=== PATIENT | male | born 1960 | race Caucasian/White ===

== ENCOUNTER 2019-01-02 05:38 | Inpatient (IN) | payer BC ==
[~2019-01-02 05:38] MED LIST: Buffered Lidocaine 1% SYRIN* 1 ML/SYRINGE INTRADERM ONE; Tranexamic Acid 1,000 MG in NS 0.9% 50 ML* (outpatient use) IV SCH
--- OUTSIDE RECORDS SUMMARY | 2019-01-02 05:41 | XMS REPORT | Continuity of Care Document ---
:1960 External Reference #:[id number] Author Name Genesis Denson Problems Active Problems Provider Date Hernia Lima Ford RN MS ESSIE Onset: 07/02/2012 Social History Type Date Description Comments Sex Unknown ETOH Use Occasionally consumes alcohol Tobacco Use Start: Unknown Patient has never smoked Smoking Status Reviewed: 12/13/18 Patient has never smoked Allergies, Adverse Reactions, Alerts Active Allergies Reaction Severity Comments Date Penicillin 07/02/2012 Medications Active Medications SIG Qnty Indications Ordering Provider Date Meloxicam 1 by mouth Unknown 15mg Tablets every day Acetaminophen ER take one Unknown 650mg tablet, orally, Tablets ER every 8-hours, as needed, for pain.... Immunizations CPT Code Status Date Vaccine Lot # [id number] Given 12/13/2018 Influenza Vac, Quadrivalent, Split, 0.5mL Dosage, [id number] Im Use [id number] Given 11/06/2002 Immunization Td 7 Yrs Or Older Vital Signs Date Vital Result Comment 12/13/2018 1:11pm Weight 283.00 lb Heart Rate 85 /min BP Systolic 140 mmHg BP Diastolic 80 mmHg Height 73 inches 6'1" BMI (Body Mass Index) 37.3 kg/m2 01/01/2014 11:19am Weight 262.38 lb Heart Rate 79 /min BP Systolic 115 mmHg BP Diastolic 72 mmHg Height 73 inches 6'1" BMI (Body Mass Index) 34.6 kg/m2 Results Description No Information Available Procedures Date Code Description Status 12/13/2018 86976 Electrocardiogram Complete Completed Medical Devices Description No Information Available Encounters Description No Information Available Assessments Date Code Description Provider 12/13/2018 Z01.818 Encounter for other preprocedural Lima Ford RN MS [employer]PLIANCE [employer]S COUNTER CLERK examination 12/13/2018 M25.551 Pain in RIGHT hip Lima Ford RN MS APPLIANCE [employer]S COUNTER CLERK 12/13/2018 I10 Essential (primary) hypertension Lima Ford, MAYURI MS APPLIANCE PARTS COUNTER CLERK 12/13/2018 E66.9 Obesity, unspecified Lima Ford, MAYURI MS APPLIANCE PARTS COUNTER CLERK 12/13/2018 Z11.59 Encounter for screening for other Lima Ford RN MS APPLIANCE PARTS COUNTER CLERK viral diseases 12/13/2018 Z12.5 Encounter for screening for malignant Lima Ford RN MS APPLIANCE PARTS COUNTER CLERK neoplasm of prostate 12/13/2018 Z23 Encounter for immunization Lima Ford RN MS APPLIANCE PARTS COUNTER CLERK 12/13/2018 Z68.37 Body mass index (BMI) 37.0-37.9, Lima Ford, MAYURI MS APPLIANCE PARTS COUNTER CLERK adult Plan of Treatment Future Appointment(s):06/26/2019 8:00 am - Lima Ford RN MS APPLIANCE PARTS COUNTER CLERK at [facility]2112/13/2018 - Lima Ford RN MS FNPZ01.818 Encounter for other preprocedural examinationComments:pt not seen here in many years and has not had a colonoscopy ,( mom had colon cancer ) he is due for a tetnus shotWe gave him a flu shot today.M25.551 Pain in RIGHT hipNew Labs:CBC with Auto Diff-fcmg, Ordered: 12/13/18I10 Essential (primary) hypertensionNew Labs:Comprehensive Met Panel-FCMG, Ordered: 12/13/18E66.9 Obesity, ivhhbfpzpbcQ48.59 Encounter for screening for other viral diseasesNew Labs:Hepatitis C Virus Antibody, Ordered: 12/13/18Z12.5 Encounter for screening for malignant neoplasm of prostateNew Labs :PSA, Ordered: 12/13/18Z23 Encounter for youskhmmrjssO38.37 Body mass index (BMI ) 37.0-37.9, adult Functional Status Description No Information Available Mental Status Description No Information Available Referrals Description No Information Available
--- OUTSIDE RECORDS SUMMARY | 2019-01-02 05:41 | XMS REPORT | Continuity of Care Document ---
:1960 External Reference #:[id number] Author Name Jacquie Crowley M.D. (transmitted by agent of provider Deon Garcia) Address [address] [facility] [place] [address] Care Team Providers Name Role Phone Lima Ford, DICE TABLE PERSON - Family Care Team Information Manager Apple Problems Active Problems Provider Date Localized, primary osteoarthritis of the pelvic Jacquie Crowley M.D. Onset: 06/2018 region and thigh Social History Type Date Description Comments Sex Unknown ETOH Use Occasionally consumes alcohol Tobacco Use Start: Unknown Patient has never smoked Smoking Status Reviewed: 11/29/18 Patient has never smoked Exercise Type/Frequency Exercises sporadically Allergies, Adverse Reactions, Alerts Active Allergies Reaction Severity Comments Date Penicillin 03/22/2018 Medications Active Medications SIG Qnty Indications Ordering Provider Date Meloxicam take 1 tab by 30tabs M25.551 Jacquie Crowley M.D. 03/22/2018 15mg Tablets mouth with food once a day Immunizations Description No Information Available Vital Signs Date Vital Result Comment 11/29/2018 3:32pm Height 72 inches 6'0" Weight 226.00 lb Heart Rate 85 /min Body Temperature 97.7 F Pain Level 3 BMI (Body Mass Index) 30.6 kg/m2 03/22/2018 2:56pm Height 72 inches 6'0" Weight 266.00 lb Heart Rate 80 /min BP Systolic 130 mmHg BP Diastolic 80 mmHg BMI (Body Mass Index) 36.1 kg/m2 Results Description No Information Available Procedures Description No Information Available Medical Devices Description No Information Available Encounters Description No Information Available Assessments Date Code Description Provider 11/29/2018 M25.551 Pain in right hip Jacquie Crowley M.D. 11/29/2018 M16.11 Unilateral primary osteoarthritis, right hip Jacquie Crowley M.D. Plan of Treatment Future Appointment(s):01/02/2019 9:30 am - Jacquie Crow[facility] M.D. at [facility]..12/20/2018 10:00 am - Jacquie Crowley M.D. at [facility].11/29/2018 - Jacquie Crowley M.D.M25.551 Pain in right hipNew Xrays:Hip Right 2 Views And Pelvis 73470 - 78559, Ordered: 11/29/18Follow up: Follow up: 7-10 days before hcrbwpgR89.11 Unilateral primary osteoarthritis, right hip Functional Status Description No Information Available Mental Status Description No Information Available Referrals Description No Information Available
--- OUTSIDE RECORDS SUMMARY | 2019-01-02 05:41 | XMS REPORT | Continuity of Care Document ---
:1960 External Reference #:[id number] Author Name Lima Ford, MAYURI MS [employer]ITCHER [employer] Address [address] [place] [address] Problems Active Problems Provider Date Hernia Lima Ford RN MS [employer]STITCHER [employer] Onset: 07/02/2012 Social History Type Date Description [...] CPT Code Status Date Vaccine Lot # [id number] Given 12/13/2018 Influenza Vac, Quadrivalent, Split, 0.5mL Dosage, [id number] Im Use [id number] Given 11/06/2002 Immunization Td 7 Yrs Or [...] BMI (Body Mass Index) 34.6 kg/m2 Results Test Date Facility Test Result H/L Range Note Laboratory test 12/20/2018 [facility] PSA Screening 0.757 ng/mL Normal 0-4.000 1 finding Hepatitis C 12/20/2018 [facility] HCV Index 0.02 s/c Virus Antibody Hepatitis C Antibody Negative Negative 1 Serum levels of PSA measured using the [employer] [place] DXI Hybritech immunoassay should not be interpreted as absolute evidence of the presence or absence of disease. The PSA value should be used in conjunction with other pertinent clinical diagnostic procedures. The values obtained with different assay methods or kits cannot be used interchangeably. Procedures Date Code Description Status 12/13/2018 03190 Electrocardiogram Complete Completed Medical Devices Description No Information Available Encounters Type Date Location Provider Dx Diagnosis Office Visit 12/13/2018 Lima Cevallos, Z01.818 [facility] M25.551 Pain in RIGHT hip I10 Essential (primary) hypertension E66.9 Obesity, unspecified Z11.59 Encounter for screening for other viral diseases Z12.5 Encounter for screening for malignant neoplasm of prostate Z23 Encounter for immunization R60.0 Localized edema Z68.37 Body mass index (BMI) 37.0-37.9, adult Assessments Date Code Description Provider 12/13/2018 Z01.818 Encounter for other preprocedural Lima Ford RN MS [employer] examination 12/13/2018 M25.551 Pain in RIGHT hip Lima Ford RN MS [employer] 12/13/2018 I10 Essential (primary) hypertension Lima Ford RN MS [employer]ER [employer] 12/13/2018 E66.9 Obesity, unspecified Lima Ford, MAYURI MS [employer]ER [employer] 12/13/2018 Z11.59 Encounter for screening for other Lima Ford RN MS [employer] viral diseases 12/13/2018 Z12.5 Encounter for screening for malignant Lima Ford RN MS [employer] neoplasm of prostate 12/13/2018 Z23 Encounter for immunization Lima Ford RN MS [employer] 12/13/2018 R60.0 Localized edema Lima Ford RN MS [employer] 12/13/2018 Z68.37 Body mass index (BMI) 37.0-37.9, Lima Ford RN [facility] adult Plan of Treatment Future Appointment(s):06/26/2019 8:00 am - Lima Ford RN MS [employer]STITCHER ZIGZAG at [facility]1912/13/2018 - [facility] Encounter for other preprocedural examinationComments:pt not seen here in many years and has not had a colonoscopy ,( mom had colon cancer ) he is due for a tetnus shotWe gave him a flu shot today.Miscellaneous:YOU MUST SCHEDULE FOR COLOGUARD OR COLONOSCOPY SOON YOU ARE ABLE, YOUR MOM HAVING COLON CANCERPUTS YOU AT HIGHER RISK!!!M25.551 Pain in RIGHT hipI10 Essential (primary) hypertensionComments:APPEARS TO BE CHRONIC AND STABLE AT THIS TIME. ON NO MEDSMiscellaneous:BP SLIGHTLY HIGH TODAY . 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 WE REVIEWED THAT ATTHIS TIME THERE IS NO OTHER SCREENING TEST AVAIL FOR THIS DX , SO WILL CONTINUE TO USE A PSA TESTZ23 Encounter for khebsdjklidqF06.0 Localized edemaComments:His RT LE is swollen , not tender or numb. pt states has been " exactly like this for years since aDVT" . We have not seen this pt is many years, and so he may need to have an U/S of the LE prior tosurgery, Unless Surgery feels not necessary.Z68.37 Body mass index (BMI ) 37.0-37.9, adult Functional Status Description No Information Available Mental Status Description No Information Available Referrals Description No Information Available
--- OUTSIDE RECORDS SUMMARY | 2019-01-02 05:41 | XMS REPORT | Continuity of Care Document ---
:1960 External Reference #:[id number] Author Name Jacquie Crowley M.D. (transmitted by agent of provider Pratibha Miguel) Address [address] [place] [address] [place] [address] Care Team Providers Name Role Phone Lima Ford, INSPECTOR DIALS - Family Care Team Information Emergency Department Problems Active Problems Provider Date Localized, primary osteoarthritis of the pelvic Jacquie Crowley M.D. Onset: 06/2018 region and thigh Social History Type Date Description Comments Sex Unknown ETOH Use Occasionally consumes alcohol Tobacco Use Start: Unknown Patient has never smoked Smoking Status Reviewed: 12/20/18 Patient has never smoked Exercise Type/Frequency Exercises sporadically Allergies, Adverse Reactions, Alerts Active Allergies Reaction Severity Comments Date Penicillin 03/22/2018 Medications Active Medications SIG Qnty Indications Ordering Provider Date Meloxicam take 1 tab by 6tabs M25.551 Jacquie Crowley M.D. 03/22/2018 15mg Tablets mouth with food once a day Immunizations Description No Information Available Vital Signs Date Vital Result Comment 12/20/2018 10:33am Height 72 inches 6'0" Weight 282.00 lb Heart Rate 80 /min BP Systolic 144 mmHg BP Diastolic 94 mmHg Respiratory Rate 20 /min Body Temperature 97.8 F Pain Level 0 BMI (Body Mass Index) 38.2 kg/m2 11/29/2018 3:32pm Height 72 inches 6'0" Weight 226.00 lb Heart Rate 85 /min Body Temperature 97.7 F Pain Level 3 BMI (Body Mass Index) 30.6 kg/m2 Results Description No Information Available Procedures Description No Information Available Medical Devices Description No Information Available Encounters Type Date Location Provider Dx Diagnosis Office Visit 11/29/2018 [facility] Jacquie Crowley M25.551 Pain in right hip 3:30p at [facility] M16.11 Unilateral primary osteoarthritis, right hip Assessments Date Code Description Provider 12/20/2018 M25.551 Pain in right hip Jacquie Crowley M.D. 12/20/2018 M16.11 Unilateral primary osteoarthritis, right hip Jacquie Crowley M.D. 11/29/2018 M25.551 Pain in right hip Jacquie Crowley M.D. 11/29/2018 M16.11 Unilateral primary osteoarthritis, right hip Jacquie Crowley M.D. Plan of Treatment Future Appointment(s):01/13/2019 3:30 pm - Jacquie Crowley M.D. at [facility] at Aeineg0701/02/2019 9:30 am - Joe Tohrne PA-C at [facility] at Fnmvzk4301/02/2019 9:30 am - DAVID Elias at [facility] at Pwarhf6101/02/2019 9:30 am - Jacquie Crowley M.D. at [facility] at Tmyupg3112/20/2018 - Jacquie Crowley M.D.M25.551 Pain in right hipM16.11 Unilateral primary osteoarthritis, right hipFollow up:Follow up: To the OR Functional Status Description No Information Available Mental Status Description No Information Available Referrals Description No Information Available
--- OUTSIDE RECORDS SUMMARY | 2019-01-02 05:41 | XMS REPORT | Continuity of Care Document ---
:1960 External Reference #:[id number] Author Name Jacquie Crowley M.D. (transmitted by agent of provider Kavita Coulter) Address [address] [place] [address] [place] [address] Care Team Providers Name Role Phone Lima Ford, RENTAL SALES AGENT - Family Care Team Information Hospital Receiving Clerk [phone] Problems Active Problems Provider Date Localized, primary [...] BMI (Body Mass Index) 30.6 kg/m2 Results Test Date Facility Test Result H/L Range Note Urinalysis Profile 12/20/2018 [facility] Urine Color Yellow [address] [place] [address] [phone] Urine Appearance Clear Urine Specific [place] 1.015 Normal 1.010-1.030 Urine pH 5.0 Normal 5-9 Urine Urobilinogen Negative Negative Urine Ketones Negative Negative Urine Protein Negative Negative Urine Leukocytes Negative Negative Urine Blood 1+ Abnormal Negative Urine Nitrite Negative Negative Urine Bilirubin Negative Negative Urine Glucose Negative Negative Urine White Blood Cell Trace(0-5/hpf) Absent Urine Red Blood Cell Trace(0-2/hpf) Absent Urine Bacteria Absent Absent Inr/Protime 12/20/2018 [facility] Inr 0.92 Normal 0.82-1.[address] [place] [address] [phone] Laboratory test 12/20/2018 [facility] Partial 30.8 Normal 26.0 -38.[address] [address] Time PTT [phone] CBC Auto Diff 12/20/2018 [facility] White Blood 5.9 10^3/uL Normal 3.5-10.[address] [place] [address] [phone] Red Blood Count 4.57 10^6/uL Normal 4.18-5.48 Hemoglobin 14.7 g/dL Normal 14.0-18.0 Hematocrit 42 % Normal 42-52 Mean Corpuscular Volume 93 fL Normal 80-94 Mean Corpuscular Hemoglobin 32 pg High 27-31 Mean Corpuscular HGB Conc 35 g/dL Normal 31-36 Red Cell Distribution Width 14 % Normal 10-15 Platelet Count 194 10^3/uL Normal 150-450 Mean Platelet Volume 7.8 fL Normal 7.4-10.4 Abs Neutrophils 3.5 10^3/uL Normal 1.5-7.7 Abs Lymphocytes 1.7 10^3/uL Normal 1.0-4.8 Abs Monocytes 0.5 10^3/uL Normal 0-0.8 Abs Eosinophils 0.1 10^3/uL Normal 0-0.6 Abs Basophils 0.0 10^3/uL Normal 0-0.2 Abs Nucleated RBC 0.0 10^3/uL Granulocyte % 59.9 % Lymphocyte % 29.0 % Monocyte % 8.2 % Eosinophil % 2.2 % Basophil % 0.7 % Nucleated Red Blood Cells % 0.1 Comp Metabolic 12/20/2018 [facility] Sodium 138 mmol/L Normal 135-145 Panel [address] [place] [address] [phone] Potassium 4.0 mmol/L Normal 3.5-5.0 Chloride 104 mmol/L Normal 101-111 Co2 Carbon Dioxide 27 mmol/L Normal 22-32 Anion Gap 7 mmol/L Normal 2-11 Glucose 86 mg/dL Normal 70-100 Blood Urea Nitrogen 17 mg/dL Normal 6-24 Creatinine 0.65 mg/dL Low 0.67-1.17 BUN/Creatinine Ratio 26.2 High 8-20 Calcium 9.2 mg/dL Normal 8.6-10.3 Total Protein 6.7 g/dL Normal 6.4-8.9 Albumin 4.4 g/dL Normal 3.2-5.2 Globulin 2.3 g/dL Normal 2-4 Albumin/Globulin Ratio 1.9 Normal 1-3 Total Bilirubin 0.40 mg/dL Normal 0.2-1.0 Alkaline Phosphatase 78 U/L Normal 34-104 Alt 34 U/L Normal 7-52 Ast 22 U/L Normal 13-39 Egfr Non- 125.7 >60 Egfr 152.1 >60 2 Type & Screen 12/20/2018 [facility] Patient Blood Type A Positive [address] [place] [address] [phone] Antibody Screen NEGATIVE Urine Culture And 12/20/2018 [facility] Urine Culture SEE RESULT 3 Sensitivities [address] [facility] [address] [place] [address] [phone] 1 Standard intensity warfarin therapeutic range: 2.0-3.0 High intensity warfarin therapeutic range: 2.5-3.5 2 Because ethnic data is not always readily available, this report includes an eGFR for both -Americans and non- Americans. The National Kidney Disease Education Program (NKDEP) does not endorse the use of the MDRD equation for patients that are not between the ages of 18 and 70, are , have extremes of body size, muscle mass, or nutritional status, or are non- or non-. According to the National Kidney Foundation, irrespective of diagnosis, the stage of the disease is based on the level of kidney function: Stage Description GFR(mL/min/1.73 m(2)) 1 Kidney damage with normal or decreased GFR 90 2 Kidney damage with mild decrease in GFR 60-89 3 Moderate decrease in GFR 30-59 4 Severe decrease in GFR 15-29 5 Kidney failure <15 (or dialysis) 3 SEE RESULT BELOW Name: DARREN FOOTE : [address]: Jacquie Crowley MD Acct: [id number] Unit: [id number] AGE: 58 Location: [facility] Re12/20/18 SEX: M Status: REG REF SPEC: [id number] MAEGAN: 12/20/[address] [facility] DR: Jacquie Crowley MD REQ: [id number] RECD: 12/20/18 STATUS: CYDNEY ESTRELLA DR: Lima Ford RENTAL SALES AGENT _ SOURCE: URINE SPDESC: ORDERED: Urine Culture QUERIES: Urine Source: Clean Catch Procedure Result Reported Site Urine Culture Final 12/21/18- 1233 ML No Growth (<1,000 CFU/mL) * ML - Main Lab . END OF REPORT DEPARTMENT OF PATHOLOGY, [address] [place] [address] Darren Herron M.D. Director [facility] # [id number] Procedures Description No Information Available Medical Devices Description No Information Available Encounters Type Date Location Provider Dx Diagnosis Office Visit 11/29/2018 [facility] Jacquie Crowley, M25.551 Pain in right hip 3:30p at [facility] M16.11 Unilateral primary osteoarthritis, right hip Assessments Date Code Description Provider 12/20/2018 M25.551 Pain in right hip Jacquie Crowley M.D. 12/20/2018 M16.11 Unilateral primary osteoarthritis, right hip Jacquie Crowley M.D. 11/29/2018 M25.551 Pain in right hip Jacquie Crowley M.D. 11/29/2018 M16.11 Unilateral primary osteoarthritis, right hip Jacquie Crowley M.D. Plan of Treatment Future Appointment(s):01/13/2019 3:30 pm - Jacquie Crowley M.D. at [facility]01/02/2019 9:30 am - Joe Thorne PA-C at [facility]01/02/2019 9:30 am - DAVID Elias at [facility]01/02/2019 9:30 am - Jacquie Crowley M.D. at [facility]12/20/2018 - Jacquie Crowley M.D.M25.551 Pain in right hipM16.11 Unilateral primary osteoarthritis, right hipFollow up:Follow up: To the OR Functional Status Description No Information Available Mental Status Description No Information Available Referrals Description No Information Available
[2019-01-02] MEDS ORDERED: DiMENhydriNATE IV* 50 MG/ML VIAL IV PUSH PRN (05:58)
[2019-01-02] MEDS ORDERED: Scopolamine 1.5 mg* PATCH TRANSDERM PRN (05:58)
[2019-01-02] MEDS ORDERED: Naloxone* 0.4 MG/ML 1 ML VIAL IV PRN (05:58)
[2019-01-02] MEDS ORDERED: fentaNYL* 50 MCG/ML 2 ML VIAL (100 MCG VIAL) IV PRN (05:58)
[2019-01-02] MEDS ORDERED: PROCHLORPERAZINE INJ 5 MG/ML 2 ML VIAL IV PRN (05:58)
[2019-01-02] MEDS ORDERED: HYDROmorphone INJ1* 1 MG/ML SYRINGE IV PRN (05:58)
[2019-01-02] MEDS ORDERED: Gabapentin CAP(*) 300 MG PO ONE (06:00)
[2019-01-02] MEDS ORDERED: Acetaminophen TAB* 325 MG PO ONE (06:00)
[2019-01-02] MEDS ORDERED: Dexamethasone TAB* 4 MG PO ONE (06:00)
[2019-01-02] MEDS ORDERED: Famotidine IV* 10 MG/ML 2 ML (20 mg) IV ONE (06:00)
[2019-01-02] MEDS ORDERED: Lactated Ringers 1000 ML Bag* 1,000 ML IV SCH (06:00)
[2019-01-02] MEDS ORDERED: celeCOXIB CAP* 200 MG PO ONE (06:00)
[2019-01-02] MEDS ORDERED: Ondansetron ODT TAB* 4 MG PO ONE (06:00)
[2019-01-02] MEDS ORDERED: Clindamycin 900 MG/D5W BAG(*) 900 MG/50 ML BAG IVPB ONE (06:22)
[2019-01-02] MEDS ORDERED: Dexamethasone TAB* 4 MG ONE (06:22)
[2019-01-02] MEDS ORDERED: Ondansetron ODT TAB* 4 MG ONE (06:22)
[2019-01-02] MEDS ORDERED: Acetaminophen TAB* 325 MG ONE (06:22)
[2019-01-02] MEDS ORDERED: celeCOXIB CAP* 200 MG ONE (06:22)
[2019-01-02] MEDS ORDERED: Famotidine IV* 10 MG/ML 2 ML (20 mg) ONE (06:22)
[2019-01-02] MEDS ORDERED: Gabapentin CAP(*) 300 MG ONE (06:41)
[2019-01-02] MEDS ORDERED: ROPIVACAINE 5 MG/ML 30 ML BTL (0.5%) ONE ×2 (07:18→08:50)
[2019-01-02] MEDS ORDERED: fentaNYL* 50 MCG/ML 5 ML VIAL (250 MCG VIAL) ONE (07:22)
[2019-01-02] MEDS ORDERED: Rocuronium* 10 MG/ML VIAL ONE ×2 (07:22→08:14)
[2019-01-02] MEDS ORDERED: KETAMINE HCL* 50 MG/ML 10 ML VIAL ONE (07:23)
[2019-01-02] MEDS ORDERED: Midazolam* 1 MG/ML 5 ML VIAL (5 MG) ONE (07:23)
[2019-01-02] MEDS ORDERED: HYDROmorphone INJ1* 1 MG/ML SYRINGE ONE ×2 (09:01→09:26)
[2019-01-02] MEDS ORDERED: Glycopyrrolate IV* 0.2 MG/ML 1 ML VIAL ONE (10:01)
[2019-01-02] MEDS ORDERED: Propofol* 10 MG/ML 20 ML BTL ONE (10:01)
[2019-01-02] MEDS ORDERED: Lidocaine 2% PF * 5 ML VIAL ONE (10:01)
[2019-01-02] MEDS ORDERED: Phenylephrine 40 MCG/ML SYRINGE ONE (10:01)
[2019-01-02] MEDS ORDERED: Neostigmine Methylsulfate* 1 MG/ML 10 ML VIAL (1 mg/ml) ONE (10:01)
[2019-01-02] MEDS ORDERED: Cyclobenzaprine TAB* 10 MG PO PRN (10:16)
[2019-01-02] MEDS ORDERED: Acetaminophen TAB* 325 MG PO PRN (10:16)
[2019-01-02] MEDS ORDERED: oxyCODONE/Acetamin 5/325 MG* TAB PO PRN (10:16)
[2019-01-02] MEDS ORDERED: diPHENhydraMINE IV* 50 MG/ML 1 ml VIAL (BENADRYL) IV PRN (10:16)
[2019-01-02] MEDS ORDERED: oxyCODONE TAB* 5 MG TAB PO PRN (10:16)
[2019-01-02] MEDS ORDERED: Morphine INJ* 2 MG/ML 1 ML SYRINGE (TWO MG - NEW SYRINGE VERSION) IV PRN (10:16)
[2019-01-02] MEDS ORDERED: diPHENhydraMINE PO* 25 MG PO PRN (10:16)
[2019-01-02] MEDS ORDERED: Ondansetron ODT TAB* 4 MG PO PRN (10:16)
[2019-01-02] MEDS ORDERED: Ondansetron INJ* 2 MG/ML VIAL IV PRN (10:16)
[2019-01-02] MEDS ORDERED: Magnesium Hydroxide LIQ* 30 ML UDC PO PRN (10:16)
--- NOTE | 2019-01-02 12:30 | PN ---
Progress Note - Progress Note Date of Service: 01/02/19 Note: resting comfortably in recovery, pain well controlled; able to dorsi flex/ plantar flex, 2+ DP pulse, intact sensation
[2019-01-02] MEDS: Lactated Ringers 1000 ML Bag* 1,000 ML IV SCH (13:45)
--- NOTE | 2019-01-02 15:33 | OP ---
Operative Report - Blank - Operative Report Date of Operation: 01/02/19 Note: SABINE FOOTE 1960 Date Of Surgery: 01/02/19 Jacquie Crowley MD Grants Officer: Soham HERNANDEZ did help throughout the procedure with preparation of the hip, wound retraction, manipulation of the hip, and wound closure. Anesthesiologist: Brady Mcnair Anesthesia Type: Spinal Preoperative Diagnosis: Right severe degenerative osteoarthritis of the hip Postoperative Diagnosis: As above Procedure Performed: Right Total Hip Arthroplasty with modifier for added operative time due to morbid obesity Complications: None Specimen: Femoral head and acetabular reamings sent to pathology. Hardware used: This is uncemented Cindy total hip arthroplasty hardware for the femur a size 6 accolade II with 127 neck angle femoral component, for the acetabulum a size 56F trident II tritanium cluster hole shell, 2 screws both 15 mm length, for the insert a size 40F trident X3 polyethylene insert, and for the femoral head a size 40 +0 ceramic biolox V40 femoral head. Brief history/Indication: SABINE FOOTE was known in clinic and had a history of severe right hip pain. He failed conservative treatment with anti- inflammatories, pain pills, intra-articular injections and physical therapy. He elected to undergo right total hip arthroplasty due to continued pain and decreased quality of life. Radiographs showed severe end stage osteoarthritis of the hip with bone on bone contact. Informed consent was obtained from the patient. He understood the risks of surgery included but were not limited to: bleeding, infection, damage to nearby structures, intraoperative fracture, nerve palsy, failure of the hardware, early loosening, stiffness or loss of motion, dislocation, leg length discrepancy, anesthesia complications, stroke, heart attack, blood clot and . He wished to proceed. Intra-Operative findings: Intraoperatively the patient was noted to have severe loss of cartilage of the acetabulum and femoral head. The patient was morbidly obese and his body habitus added 60 minutes to operative time. Positioning, exposure, implant placement and closure were all made more complex and took additional operative time. Description of the Procedure: SABINE FOOTE was identified in the preanesthesia unit. His right hip was marked as the correct operative side. Informed consent was signed and placed in the chart. The patient was taken to the operating room and placed under anesthesia without complication. A burton catheter was placed. The patient was placed on the peg board with all bony prominences well padded. The right lower extremity was prepped and draped in the usual sterile fashion. Preoperative time -out was made to correctly identify the patient, side and site. Appropriate intraoperative antibiotics were given within one hour of incision. A standard posterior incision was made and carried sharply down to the lateral fascia. A new 10 blade was used to make an incision in the fascia in line with the skin incision. A charnley retractor was placed. The piriformis and conjoined tendons were identified and elevated off the posterolateral femur using electrocautery. These were tagged with number 5 Ethibond. Next electrocautery was used to make a posterolateral capsular flap and this was tagged with number 5 Ethibonds. The hip was carefully dislocated. Lesser trochanter to the center of the femoral head was measured at 62 mm. The oscillating saw was used to make the femoral neck cut. The femoral head was carefully removed. The femur was retracted anteriorly and the acetabular retractors were placed. Long-handled knife was used to sharply remove any remaining labrum from the acetabular rim. The acetabulum was sequentially reamed up to a size 56. A bleeding subchondral bone bed was obtained. A trial liner was placed and had excellent fit and stability. A 56F cup with 2 screws was placed and had excellent stability with appropriate anteversion and abduction angle. A size 40 F polyethylene liner was impacted into the acetabular shell. The liner was checked for stability and was stable. Next attention was turned to preparation of the femoral canal. A canal finder was used to enter the proximal femur. The femoral canal was sequentially broached up to a size 6 femoral broach trial. A trial neck and 40 +0 trial femoral head was chosen. Lesser trochanter to center of the femoral head measurement was satisfactory. The hip was reduced and taken through a range of motion. The hip was stable in all positions with good soft tissue tension and appropriate leg lengths. The hip was dislocated and all trials were removed. The final implant chosen was a accolade size 6 with 127 neck angle. This stem was impacted into the femoral canal without difficulty. The stem was stable with appropriate anteversion. The femoral head chosen was a 40 + 0 ceramic head. The head was impacted onto the femoral neck without difficulty. The final lesser trochanter to center of the femoral head measurement was satisfactory. The hip was reduced and taken through a range of motion. The hip was stable in all positions with good soft tissue tension and appropriate leg lengths. The hip was copiously irrigated with sterile saline. The previously tagged capsule and tendons were repaired to the posterolateral femur through two trochanteric drill holes. The lateral fascia layer was closed using number 1 vicryls. The rest of the incision was closed in a layered fashion using 0 and 2-0 vicryls. The skin was closed using 3-0 monocryl suture and Dermabond. Sterile adaptic, 4x4s and paper tape was used to cover the incision. The patients anesthesia was reversed without difficulty. He was taken to the PACU in stable condition. Intended weight-bearing will be as tolerated with posterior hip precautions.
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
[2019-01-02] MEDS ORDERED: Clindamycin 600 MG IVPREMIX(* 600 MG/50 ML SDV IV SCH (17:30)
[2019-01-02] MEDS: Docusate CAP* 100 MG PO SCH (21:02)
[2019-01-02] MEDS: Magnesium Hydroxide LIQ* 30 ML UDC PO SCH (21:02)
[2019-01-02] MEDS: oxyCODONE/Acetamin 5/325 MG* TAB PO PRN (21:04)
[2019-01-03] MEDS: Lactated Ringers 1000 ML Bag* 1,000 ML IV SCH (00:18)
[2019-01-03] MEDS: oxyCODONE/Acetamin 5/325 MG* TAB PO PRN ×4 (01:23→22:08)
[2019-01-03] MEDS: Clindamycin 600 MG/D5W BAG(*) 600 MG/50 ML BAG IV SCH ×2 (01:30→08:25)
[2019-01-03 06:14] LABS: Hematocrit 33 % (42-52); Hemoglobin 11.4 g/dL (14.0-18.0); Mean Platelet Volume 7.6 fL (7.4-10.4); Platelet Count 147 10^3/uL (150-450)
[2019-01-03 06:31] LABS: BUN/Creatinine Ratio 24.3 (8-20); Calcium 8.2 mg/dL (8.6-10.3); EGFR African American 139.7 (>60); EGFR Non-African American 115.4 (>60)
[2019-01-03] MEDS: Docusate CAP* 100 MG PO SCH ×2 (08:55→22:07)
[2019-01-03] MEDS: Vitamin THERAPEUTIC TAB PO SCH (08:55)
[2019-01-03] MEDS: Apixaban* 2.5 MG TAB PO SCH ×2 (08:56→22:07)
[2019-01-03] MEDS: Magnesium Hydroxide LIQ* 30 ML UDC PO SCH ×2 (08:56→22:07)
--- NOTE | 2019-01-03 10:19 | PN ---
Progress Note - Progress Note Date of Service: 01/03/19 SOAP: Subjective: [Pt was seen in chair this morning. States that he is doing well. Pain is well controlled at this point. He denies any SOB, chest pain. numbness or tingling. He has not had a bowel movement at this point. Lozano was just removed. ] Objective: [General: pt is alert and oriented x3. NAD MSK, RLE: dressing is c/d/i. Calves are soft and non tender. He is NVI. ] Vital Signs Temp 98.5 F 01/03/19 07:31 Pulse 81 01/03/19 07:31 Resp 18 01/03/19 10:00 BP 101/58 01/03/19 07:31 Pulse Ox 94 01/03/19 10:00 Intake & Output 01/02/19 01/03/19 01/03/19 18:59 06:59 18:59 Intake Total 3040 2033 Output Total 500 1300 Balance 2540 733 Intake: IV Fluids 2800 1033 ABX - CLINDAMYCIN 53 LR 2800 980 Oral 240 1000 Output: Lozano 200 1300 Emesis 150 Estimated Blood Loss 150 Assessment: [POD RTHA ] Plan: [Discussion of discharge occurred today. The pt would like to go home should afternoon PT go well. Continue with Eliquis x 30 days Continue with Percocet 5/325 for pain relief. DC tomorrow morning ]
--- NOTE | 2019-01-03 19:25 | PN ---
Subjective Date of Service: 01/03/19 Interval History: Pt doing well today. He states that his pain is very well controlled, rates it at 1-2/10 currently. He has just returned from walking halls. He has no complaints. Objective Active Medications: Acetaminophen (Tylenol Tab*) 650 mg PO Q8HR PRN Apixaban (Eliquis*) 2.5 mg PO BID STEPHEN Bisacodyl (Dulcolax Supp*) 10 mg NJ DAILY PRN Cyclobenzaprine HCl (Flexeril Tab*) 10 mg PO Q6H PRN Diphenhydramine HCl (Benadryl Iv*) 25 mg IV Q6H PRN Diphenhydramine HCl (Benadryl Po*) 25 mg PO Q6H PRN Docusate Sodium (Colace Cap*) 100 mg PO BID STEPHEN Lactated Ringer's (Lactated Ringers 1000 Ml Bag*) 1,000 mls @ 100 mls/hr IV PER RATE STEPHNE Lactulose (Lactulose*) 30 ml PO BID PRN Magnesium Hydroxide (Milk Of Magnesia Liq*) 30 ml PO BID STEPHEN Magnesium Hydroxide (Milk Of Magnesia Liq*) 30 ml PO Q6H PRN Morphine Sulfate (Morphine Inj (Syringe))*) 2 mg IV Q4H PRN Multivitamins (Theragran Tab*) 1 tab PO DAILY STEPHEN Ondansetron HCl (Zofran Inj*) 4 mg IV Q6H PRN Ondansetron HCl (Zofran Odt Tab*) 4 mg PO Q6H PRN Oxycodone HCl (Roxycodone Tab*) 10 mg PO Q4H PRN Oxycodone/Acetaminophen (Percocet 5/325 Tab*) 1 tab PO Q4H PRN Oxycodone/Acetaminophen (Percocet 5/325 Tab*) 2 tab PO Q4H PRN Vital Signs: Temp Pulse Resp BP Pulse Ox 100 F 82 16 105/56 98 01/03/19 16:47 01/03/19 15:48 01/03/19 16:00 01/03/19 15:48 01/03/19 16:00 Oxygen Devices in Use Now: None Appearance: Pt sitting in chair with LE elevated. In no acute distress. Eyes: No Scleral Icterus, PERRLA Ears/Nose/Mouth/Throat: NL Teeth, Lips, Gums, Clear Oropharnyx, Mucous Membranes Moist Neck: NL Appearance and Movements; NL JVP, Trachea Midline Respiratory: Symmetrical Chest Expansion and Respiratory Effort, Clear to Auscultation Cardiovascular: NL Sounds; No Murmurs; No JVD, RRR, No Edema Abdominal: NL Sounds; No Tenderness; No Distention, No Hepatosplenomegaly Extremities: No Edema, No Clubbing, Cyanosis, - - R hip with CDI dressing in place. Neurological: Alert and Oriented x 3 Result Diagrams: 01/03/19 05:31 01/03/19 05:31 Assess/Plan/Problems-Billing Assessment: 58 yom PMHx OA presents s/p R GUNJAN with post-operative apnea. - Patient Problems (1) Status post total hip replacement, right Comment: -POD 1 -Management per ortho team -Pain control, bowel regimen -PT/OT (2) Apnea Comment: -Post-op apnea, desaturation -Continue pulse ox -Required supp O2 at night, none during day -Recommend outpatient sleep study (3) DVT prophylaxis Comment: -Per ortho: apixaban 2.5 BID (4) Full code status Status and Disposition: Inpatient. Discharge per ortho; likely tomorrow.
[2019-01-04 05:33] LABS: Hematocrit 33 % (42-52); Hemoglobin 11.5 g/dL (14.0-18.0); Mean Platelet Volume 7.6 fL (7.4-10.4); Platelet Count 144 10^3/uL (150-450)
[2019-01-04 08:07] VITALS: BP 113/70
--- NOTE | 2019-01-04 09:01 | PN ---
Progress Note - Progress Note Date of Service: 01/04/19 SOAP: Subjective: Pt is doing well. Denies F/C, CP/SOB or calf pain. low grade temp overnight that resolved. Doing well with PT Objective: PE- 58 y/o WDWN M NAD, A&Ox3 RLE- dressing change, inc c/d/i, calf soft NT, +DF/PF ankle, +2 DP pulse, SILT distally Vital Signs Temp Pulse Resp BP Pulse Ox 99.4 F 86 17 113/70 96 01/04/19 08:07 01/04/19 08:07 01/04/19 08:07 01/04/19 08:07 01/04/19 08:07 Laboratory Results - last 24 hr 01/04/19 05:06 Hgb 11.5 L Hct 33 L Plt Count 144 L MPV 7.6 Assessment: [POD 2 RTHA ] Plan: WBAT cont PT/OT Continue with Eliquis x 30 days Continue with Percocet 5/325 for pain relief. Colace for constipation DC home today with out patient PT Meds sent to [facility]
--- NOTE | 2019-01-04 09:10 | DS ---
Date of service: 01/04/19 Date of Admission:01/02/19 Date of Discharge: [01/04/19] Date of Surgery: [01/02/19] Attending Orthopedic Provider: [Dr. Crowley] Pre-operative Diagnosis: [Right hip OA] Operative Procedure: [Right total hip replacement] Disposition of Patient: [Home with out pt PT] Condition of Patient: [Stable] History: SABINE FOOTE is a 58 year old M with years of increasingly severe right hip pain due to severe right hip OA. Patient has failed conservative management and has elected to undergo a right total hip replacement Hospital Course: SABINE was admitted to [facility] on 01/02/19. Patient underwent a [right total hip replacement] without complication followed by a brief recovery in PACU and transfer to the Short Stay Surgical Unit in stable condition. Our hospitalist service, physical therapy and occupational therapy also participated in this patients care. Post-op day 1: patient was alert and in no acute distress. Dressing was clean, dry and intact. Operative extremity dorsiflexion and plantarflexion intact, sensation intact to light touch distally, DP2+. Post-op day two: dressing was changed, incision was clean , dry and intact. Patient was deemed to be medically and orthopedically stable for discharge. Physical therapy goals were met. Discharge Instructions following Orthopedic Surgery: Activity: * Weight Bearing as tolerated * Continue physical therapy and occupational therapy exercises as shown Hip replacements: Continue Hip Precautions- do not cross legs or bend greater than 90 degrees/squat Wound care: * OK to shower on post-op day 3, no bathing, swimming, or submerging wound. * Use gentle soap, pat dry. Cover with gauze, EVELIA wrap or tape. * Visiting home nurse to do wound checks. Call Orthopedic office for: * Increased drainage * Redness * Increased pain * Fever Go to ER with shortness of breath or chest pain. Diet: * Regular diet * Increase fluids and fiber to prevent constipation. * Continue to use stool softeners, call office if no bowel motion within 48 hours. Medications See Home Medication List in your packet for medications that you should take after discharge. DVT Prophylaxis: Eliquis Dosin.5 mg, 1 tab every 12 hours x 30 days DO NOT tanke mobic(meloxicam) while on eliquis. Pain Control: Percocet Dosin/325 mg 1-2 tabs by mouth every 4-6 hours as needed for pain. Maximum of 10 tabs per day. Please note that Percocet contains Tylenol (acetaminophen). Maximum daily dose of Tylenol is 4000 mg from all sources. Antibiotics are required prior to any dental work. FOLLOW UP: Follow up with Dr. Crowley Within 10-14 days, call for appointment Please call our office with any questions or concerns ([phone]) RX to [facility] Active Medications Generic Name Dose Route Start Last Admin Trade Name Freq PRN Reason Stop Dose Admin Acetaminophen 650 mg 01/02/19 10:16 Tylenol Tab* PO Q8HR PRN MILD PAIN or TEMP > 100.4 Apixaban 2.5 mg 01/03/19 09:00 01/03/19 22:07 Eliquis* PO 2.5 mg BID STEPHEN Administration Bisacodyl 10 mg 01/04/19 10:16 Dulcolax Supp* ND DAILY PRN CONSTIPATION Cyclobenzaprine HCl 10 mg 01/02/19 10:16 Flexeril Tab* PO Q6H PRN SPASMS Diphenhydramine HCl 25 mg 01/02/19 10:16 Benadryl Iv* IV Q6H PRN PRURITIS Diphenhydramine HCl 25 mg 01/02/19 10:16 Benadryl Po* PO Q6H PRN PRURITIS Docusate Sodium 100 mg 01/02/19 21:00 01/03/19 22:07 Colace Cap* PO 100 mg BID STEPHEN Administration Lactated Ringer's 1,000 mls @ 100 mls/hr 01/02/19 11:00 01/03/19 00:18 Lactated Ringers 1000 Ml Bag* IV 100 mls/hr PER RATE STEPHEN Administration Lactulose 30 ml 01/02/19 10:16 Lactulose* PO BID PRN CONSTIPATION Magnesium Hydroxide 30 ml 01/02/19 21:00 01/03/19 22:07 Milk Of Magnesia Liq* PO 30 ml BID STEPHEN Administration Magnesium Hydroxide 30 ml 01/02/19 10:16 Milk Of Magnesia Liq* PO Q6H PRN CONSTIPATION Morphine Sulfate 2 mg 01/02/19 10:16 Morphine Inj (Syringe))* IV Q4H PRN Pain - Unrelieved Multivitamins 1 tab 01/03/19 09:00 01/03/19 08:55 Theragran Tab* PO 1 tab DAILY STEPHEN Administration Ondansetron HCl 4 mg 01/02/19 10:16 01/02/19 15:38 Zofran Inj* IV 4 mg Q6H PRN Administration NAUSEA Ondansetron HCl 4 mg 01/02/19 10:16 Zofran Odt Tab* PO Q6H PRN NAUSEA Oxycodone HCl 10 mg 01/02/19 10:16 Roxycodone Tab* PO Q4H PRN Pain - Breakthrough Oxycodone/Acetaminophen 1 tab 01/02/19 10:16 01/03/19 22:08 Percocet 5/325 Tab* PO 1 tab Q4H PRN Administration PAIN - MODERATE Oxycodone/Acetaminophen 2 tab 01/02/19 10:16 Percocet 5/325 Tab* PO Q4H PRN PAIN - SEVERE
[2019-01-04] MEDS ORDERED: Bisacodyl SUPP* 10 MG SUPP PR PRN (10:16)
[2019-01-04] MEDS: Magnesium Hydroxide LIQ* 30 ML UDC PO SCH (10:30)
[2019-01-04] MEDS: Vitamin THERAPEUTIC TAB PO SCH (10:31)
[2019-01-04] MEDS: Docusate CAP* 100 MG PO SCH (10:32)
[2019-01-04] MEDS: Apixaban* 2.5 MG TAB PO SCH (10:32)
[2019-01-05] MEDS ORDERED: Scopolamine PATCH Remove* 1 NOTE MISC PATCH OFF ONE (06:00)
== END 2019-01-04 12:20 | disposition home or self-care (01) | DRG 301 ==
LOC: AA 05:38 → SSU 14:47
PROVIDERS: ADMIT Orthopaedic Surgery Adult Reconstructive Orthopaedic Surgery; ATTEND Orthopaedic Surgery Adult Reconstructive Orthopaedic Surgery
PROC: 0SR904A Replacement of Right Hip Joint with Ceramic on Polyethylene Synthetic Substitute, Uncemented, Open Approach (ICD-10-PCS; principal; 2019-01-02 07:30)
DX: M16.11 Unilateral primary osteoarthritis, right hip (principal); I10 Essential (primary) hypertension; E66.01 Morbid (severe) obesity due to excess calories; R06.81 Apnea, not elsewhere classified; Z86.718 Personal history of other venous thrombosis and embolism; Z88.0 Allergy status to penicillin; Z72.89 Other problems related to lifestyle; Z82.3 Family history of stroke; Z80.0 Family history of malignant neoplasm of digestive organs; Z68.37 Body mass index [BMI] 37.0-37.9, adult
CPT/HCPCS: 36415; 80048; 85014; 85018; 85049; 88304; 88311; A9270-GY; C1713; C1776; J1170; J2250; J2405; J2704; J2710; J2795; J3010; J8540